=== PATIENT | female | born 1940 | race Caucasian/White ===

== ENCOUNTER 2018-04-18 05:11 | Inpatient (IN) | payer MEDICARE, MEDICAID ==
[~2018-04-18] VITALS: Ht 152.4 cm; Wt 92.1 kg
[2018-04-18 05:45] VITALS: BP 138/76
--- NOTE | 2018-04-18 05:45 | NUR ---
RN NOTES RECEIVED PT FROM DAY SURGERY A/OX4 IRAQI SPEAKING, UNDERSTAND LITTLE LIBERIAN, AT BEDSIDE, DENIES PAIN NO, SOB, PT. SIGNED ALL THE CONSENT, [id number], CONTINUE TO MONITOR
[2018-04-18] MEDS ORDERED: oxyCODONE HCL SR 10MG TAB.SR.12H PO ONE (06:00)
[2018-04-18] MEDS ORDERED: METOCLOPRAMIDE HCL 10 MG/2 ML VIAL IV ONE (06:00)
[2018-04-18] MEDS ORDERED: CELECOXIB 100 MG CAPSULE PO ONE (06:00)
[2018-04-18] MEDS ORDERED: ACETAMINOPHEN ES 500 MG TABLET PO ONE (06:00)
[2018-04-18] MEDS ORDERED: ACETAMINOPHEN ES 500 MG TABLET ONE (06:25)
[2018-04-18] MEDS ORDERED: ANESTHESIA TRAY IN PYXIS 1 EA TRAY MC ONE (06:30)
--- NOTE | 2018-04-18 06:35 | NUR ---
RN NOTES DR. SCHUSTER, ANESTHESIOLOGIST, CAME-UP AND CHECKED PT. LAB WORKS AND GAVE ME AN ORDER TO GIVE THE PRE-OP MEDS, ORDER NOTED AND CARRIED OUT
--- NOTE | 2018-04-18 06:50 | NUR ---
RN NOTES OR CAME AND PICKED-UP THE PT.ON STABLE CONDITION
[2018-04-18] MEDS ORDERED: HYDROMORPHONE INJ 2 MG/ML DISP.SYRIN ONE (06:57)
[2018-04-18] MEDS ORDERED: ROCURONIUM BROMIDE 50 MG/5 ML ONE ×2 (06:57→07:49)
[2018-04-18] MEDS ORDERED: KETOROLAC TROMETHAMINE INJ 30 MG/ML VIAL ONE ×2 (07:05→08:04)
[2018-04-18] MEDS ORDERED: DESFLURANE 240 ML BOTTLE IH ONE (07:05)
[2018-04-18] MEDS ORDERED: MORPHINE SULFATE INJ 4 MG/ML DISP.SYRIN ONE (07:06)
[2018-04-18] MEDS ORDERED: BUPIVACAINE MPF 0.5% W/EPI INJ 30 ML VIAL ONE (07:06)
--- NOTE | 2018-04-18 07:41 | NUR ---
MS RN OPENING NOTES RECEIVED REPORT ON PATIENT. PATIENT IS IN OPERATION ROOM. WILL CONTINUE TO MONITOR WHEN PATIENT RETURNS TO THE UNIT.
[2018-04-18] MEDS ORDERED: BACITRACIN 50000 UNITS/VIAL ONE (07:43)
[2018-04-18] MEDS ORDERED: ASPIRIN 600 MG/SUPP.RECT RC ONE (08:00)
[2018-04-18] MEDS ORDERED: TRANEXAMIC ACID 1,500 MG in SODIUM CHLORIDE IRRIG SOLUTION 85 ML IR ONE (08:00)
[2018-04-18] MEDS ORDERED: oxyCODONE IR immediate release 5 MG ONE (08:08)
[2018-04-18] MEDS ORDERED: HYDROMORPHONE 1 MG/1 ML DISP.SYRIN ONE (10:54)
[2018-04-18] MEDS ORDERED: HYDR-3976 PO (11:38)
[2018-04-18] MEDS ORDERED: METO-357 PO (11:38)
[2018-04-18] MEDS ORDERED: VALS1TAB4 PO (11:38)
[2018-04-18] MEDS ORDERED: OMEP20CA10 PO (11:38)
[2018-04-18] MEDS ORDERED: LEVO125T8 PO (11:38)
[2018-04-18] MEDS ORDERED: MELO-105 PO (11:38)
[2018-04-18] MEDS ORDERED: ASPI-1153 PO (11:38)
[2018-04-18] MEDS ORDERED: SITA1TAB2 PO (11:38)
[2018-04-18] MEDS ORDERED: ALLO100T PO (11:38)
[2018-04-18] MEDS ORDERED: ATOR10TA PO (11:38)
[2018-04-18] MEDS: ACETAMINOPHEN ES 500 MG TABLET PO SCH ×3 (12:00→23:14)
[2018-04-18] MEDS: ONDANSETRON HCL/PF 4 MG/2 ML VIAL IVP SCH ×3 (12:00→23:13)
[2018-04-18] MEDS: KETOROLAC TROMETHAMINE INJ 30 MG/ML VIAL IV SCH ×3 (12:00→23:14)
[2018-04-18] MEDS ORDERED: DULCOLAX 10 MG/SUPP.RECT RC PRN (12:30)
[2018-04-18] MEDS ORDERED: COLACE 100 MG CAPSULE PO PRN (12:30)
[2018-04-18] MEDS ORDERED: MAGNESIUM HYDROXIDE 30 ML UDC PO PRN (13:00)
[2018-04-18] MEDS ORDERED: HYDROMORPHONE 1 MG/1 ML DISP.SYRIN IV PRN (13:00)
[2018-04-18] MEDS: IV 1/2NS 1000 ML 1,000 ML IV PRN (13:11)
[2018-04-18] MEDS: ANCEF 1 G in IV D5W 50 ML IV SCH ×2 (14:26→22:01)
[2018-04-18] MEDS ORDERED: DEXTROSE 50%-WATER 50 ML DISP.SYRIN IV PRN (15:00)
[2018-04-18 16:10] VITALS: BP 96/61
[2018-04-18] MEDS: ALLOPURINOL 100 MG TABLET PO SCH (16:32)
[2018-04-18] MEDS: BLOOD SUGAR DIAGNOSTIC 1 EACH STRIP IN SCH ×2 (16:35→22:12)
[2018-04-18] MEDS: CELECOXIB 100 MG CAPSULE PO SCH (16:39)
[2018-04-18] MEDS: ATORVASTATIN 10 MG TABLET PO SCH (17:18)
[2018-04-18 17:33] LABS: HEMATOCRIT 28 % (33-45); HEMOGLOBIN 8.7 g/dL (11.5-14.8); LYMPHOCYTES # (AUTO) 0.6 /CMM (0.8-4.8); LYMPHOCYTES % (AUTO) 3.6 % (20.0-44.0); MEAN CORPUSCULAR HGB CONC 32 g/dl (31.0-36.0); MEAN CORPUSCULAR VOLUME 96 fL (82-100); MONOCYTES # (AUTO) 0.7 /CMM (0.1-1.30); MONOCYTES % (AUTO) 3.7 % (2.0-12.0); NEUTROPHILS # (AUTO) 16.5 /CMM (1.8-8.9); NEUTROPHILS % (AUTO) 92.7 % (43.0-81.0); PLATELET COUNT (AUTO) 224 /CMM (150-450); RDW COEFFICIENT OF VARIATION 14.5 (11.5-15.0); RED BLOOD CELL COUNT(AUTO) 2.87 MIL/uL (4.0-5.2); WHITE BLOOD COUNT (AUTO) 17.8 K/uL (4.3-11.0)
[2018-04-18 17:49] LABS: CALCIUM, SERUM 8.2 mg/dL (8.5-10.1); CARBON DIOXIDE 22 mmol/L (21-32); CHLORIDE 105 mmol/L (98-107); CREATININE 1.3 mg/dL (0.6-1.3); GLUCOSE 174 mg/dL (74-106); MAGNESIUM 1.3 mg/dL (1.8-2.4); PHOSPHORUS 4.7 mg/dL (2.5-4.9); POTASSIUM 4.3 mmol/L (3.5-5.1); SODIUM SERUM 140 mmol/L (136-145); UREA NITROGEN, BLOOD 23 mg/dL (7-18)
[2018-04-18 18:01] LABS: CHOLESTEROL 100 mg/dL (<200); HDL CHOLESTEROL 44 mg/dL (40-60); LDL 49 mg/dL (0-99); THYROID STIMULATING HORMONE 1.052 uIU/mL (0.358-3.74); TRIGLYCERIDES 43 mg/dL (30-150)
--- NOTE | 2018-04-18 18:32 | NUR ---
MS RN CLOSING NOTES PATIENT IS IN STABLE CONDITION. IN NO APPARENT DISTRESS. BEDSIDE RAILS ARE UPX2. BED IS LOCKED AND LOWERED. CALL LIGHT IS WITHIN REACH. IV LINE IS INTACT AND PATENT. WILL ENDORSE CARE TO LIGHTING FIXTURE INSTALLER NURSE FOR TANNER.
--- NOTE | 2018-04-18 19:00 | NUR ---
MS RN OPENING NOTE Patient was seen lying in bed AAOx4, breathing comfortably on 2L O2 NC with no SOB, and currently no signs of acute distress. 1/2 NS at 75ml/hr is running through the right FA with no signs of leaking or infiltration. Eng cath is draining clear, yellow urine. Bed is low/locked, two side rails up, and call teague within reach. Patient reports no pain/discomfort at this time. Will continue to monitor.
[2018-04-18 20:00] VITALS: BP 81/51
[2018-04-18] MEDS ORDERED: IV NS 0.9% 250 ML IV ONE (20:30)
--- NOTE | 2018-04-18 20:40 | NUR ---
MS RN NOTE - Low BP, Bolus and labs Patient's BP was found to be 81/51; patient still AAOx3 with no change in mental status. Phone call was made to Dr. Garcia. Per MD orders, one bolus of NS 250ml was given, and lab draw for CBC has been entered electronically. Will reassess after bolus is complete.
[2018-04-18 21:25] LABS: HEMATOCRIT 26 % (33-45); HEMOGLOBIN 8.1 g/dL (11.5-14.8); LYMPHOCYTES # (AUTO) 0.8 /CMM (0.8-4.8); MEAN CORPUSCULAR HGB CONC 31 g/dl (31.0-36.0); MEAN CORPUSCULAR VOLUME 97 fL (82-100); MONOCYTES # (AUTO) 0.7 /CMM (0.1-1.30); MONOCYTES % (AUTO) 4.4 % (2.0-12.0); NEUTROPHILS # (AUTO) 14.8 /CMM (1.8-8.9); NEUTROPHILS % (AUTO) 90.6 % (43.0-81.0); PLATELET COUNT (AUTO) 191 /CMM (150-450); RDW COEFFICIENT OF VARIATION 14.3 (11.5-15.0); RED BLOOD CELL COUNT(AUTO) 2.69 MIL/uL (4.0-5.2); WHITE BLOOD COUNT (AUTO) 16.3 K/uL (4.3-11.0)
[2018-04-18 21:40] VITALS: BP 102/56
--- NOTE | 2018-04-18 21:40 | NUR ---
MS RN NOTE - Reassess BP Bolus of NS 250ml has completed. Upon reassessment, patient's BP is 102/56, pulse 76 bpm. Patient remains AAOx3. Patient is tolerating fluids well. Restarted continuous IVF of 1/2 NS at 75ml/hr.
[2018-04-18] MEDS: INSULIN REGULAR, HUMAN 100 UNIT/ML 3 ML VIAL SQ PRN (22:12)
[2018-04-18] MEDS: Magnesium 1GM/D5W 100ML PREMIX 100 ML IV SCH (23:36)
[2018-04-19] VITALS (8 sets, daily range): BP systolic 84–106; BP diastolic 43–54
[2018-04-19] MEDS: Magnesium 1GM/D5W 100ML PREMIX 100 ML IV SCH (00:36)
[2018-04-19] MEDS: KETOROLAC TROMETHAMINE INJ 30 MG/ML VIAL IV SCH ×3 (05:05→18:24)
[2018-04-19] MEDS: ACETAMINOPHEN ES 500 MG TABLET PO SCH ×3 (05:06→18:24)
[2018-04-19] MEDS: ONDANSETRON HCL/PF 4 MG/2 ML VIAL IVP SCH (05:06)
[2018-04-19 06:39] LABS: CALCIUM, SERUM 8.2 mg/dL (8.5-10.1); CARBON DIOXIDE 24 mmol/L (21-32); CHLORIDE 104 mmol/L (98-107); CREATININE 1.2 mg/dL (0.6-1.3); GLUCOSE 127 mg/dL (74-106); POTASSIUM 4.8 mmol/L (3.5-5.1); SODIUM SERUM 137 mmol/L (136-145); UREA NITROGEN, BLOOD 28 mg/dL (7-18)
[2018-04-19] MEDS: PANTOPRAZOLE 40 MG TABLET.DR PO SCH (06:39)
[2018-04-19] MEDS: LEVOTHYROXINE SODIUM 125 MCG TABLET PO SCH ×2 (06:39→06:58)
[2018-04-19 06:40] LABS: BASOPHILS % (AUTO) 0.2 % (0.0-2.0); HEMATOCRIT 22 % (33-45); HEMOGLOBIN 7.2 g/dL (11.5-14.8); LYMPHOCYTES # (AUTO) 1.5 /CMM (0.8-4.8); LYMPHOCYTES % (AUTO) 11.9 % (20.0-44.0); MEAN CORPUSCULAR HGB CONC 32 g/dl (31.0-36.0); MEAN CORPUSCULAR VOLUME 97 fL (82-100); MONOCYTES # (AUTO) 0.9 /CMM (0.1-1.30); MONOCYTES % (AUTO) 6.9 % (2.0-12.0); NEUTROPHILS # (AUTO) 10.4 /CMM (1.8-8.9); PLATELET COUNT (AUTO) 187 /CMM (150-450); RDW COEFFICIENT OF VARIATION 14.8 (11.5-15.0); RED BLOOD CELL COUNT(AUTO) 2.32 MIL/uL (4.0-5.2); WHITE BLOOD COUNT (AUTO) 12.8 K/uL (4.3-11.0)
[2018-04-19] MEDS: IV 1/2NS 1000 ML 1,000 ML IV PRN ×2 (06:40→15:31)
[2018-04-19] MEDS: BLOOD SUGAR DIAGNOSTIC 1 EACH STRIP IN SCH ×4 (06:57→22:09)
--- NOTE | 2018-04-19 06:58 | NUR ---
MS RN NOTE - Refused Synthroid, took own med Patient refused to take Synthroid. Upon further assessment with [place] food manager, I found out that the patient had her own medication of Synthroid in her purse, which she had taken at 06:00. Advised patient that she should not be administering her own medications while in the hospital and that meds will either need to be taken home or go to our pharmacy temporarily.
--- NOTE | 2018-04-19 07:00 | NUR ---
MS RN CLOSING NOTE Patient AAOx3 with no signs of acute distress. All patient needs attended to overnight. Patient care endorsed to day shift RN.
--- NOTE | 2018-04-19 07:15 | NUR ---
MS RN INITIAL NOTES Report received at bedside. Patient received in bed, intermittently sleeping, easily aroused. Rwandan speaking, Signals Analyst used. Denies any pain at the moment. Not in any type of distress. No SOB/labored breathing noted. Patient reported to have blood pressure on the lower side. Will continue to monitor and assess patient.
--- NOTE | 2018-04-19 08:27 | NUR ---
MS RN - NOTES Dr. Tejeda at bedside. Aware of low blood pressure with new order of 2 units of PRBCs.
[2018-04-19] MEDS: HYDROCHLOROTHIAZIDE 25 MG TABLET PO SCH (09:00)
[2018-04-19] MEDS: METOPROLOL SUCCINATE 50 MG TAB.SR.24H PO SCH (09:00)
[2018-04-19] MEDS: VALSARTAN 80 MG TABLET PO SCH (09:00)
[2018-04-19] MEDS: CELECOXIB 100 MG CAPSULE PO SCH ×2 (09:07→17:26)
[2018-04-19] MEDS: ASPIRIN EC 81 MG TABLET.DR PO SCH (09:07)
[2018-04-19] MEDS: ALLOPURINOL 100 MG TABLET PO SCH ×2 (09:07→17:26)
[2018-04-19] MEDS: MELOXICAM 7.5 MG TABLET PO SCH (09:18)
[2018-04-19] MEDS: ASPIRIN EC 325 MG TABLET.DR PO SCH (09:18)
--- NOTE | 2018-04-19 12:00 | NUR ---
MS RN - MANUAL ADMIN NOTES Tylenol 500mg unable to scan barcode. Will give the label/barcode to [employer].
[2018-04-19] MEDS: INSULIN REGULAR, HUMAN 100 UNIT/ML 3 ML VIAL SQ PRN (12:19)
[2018-04-19] MEDS ORDERED: SITA1TAB2 PO (17:25)
[2018-04-19] MEDS: ATORVASTATIN 10 MG TABLET PO SCH ×3 (17:26→22:00)
--- NOTE | 2018-04-19 18:25 | NUR ---
MS RN - MANUAL ADMIN NOTES Still unable to scan tylenol barcode. Informed pharmacy director.
--- NOTE | 2018-04-19 18:26 | NUR ---
MS RN CLOSING NOTES Patient remained in bed, awake, and verbally responsive. Complained of pain with help of scheduled pain mgmt. No SOB/labored breathing noted. Not in any type distress. Eng cath in place: clear and yellow output: 600cc total output. Pillow abductor in place. Patient has been refusing insulin: found out that she has bottles of medications in her purse including janumet for DM. Provided teaching that it is best to have take her medications home for safety. MD made aware. Afebrile. All due meds given and tolerated. All needs anticipated and met. Bed in locked and lowest position with bed alarm on and call light within reach. Will endorse to oncoming shift nurse. ANIMATION ARTIST: Janny
--- NOTE | 2018-04-19 19:20 | NUR ---
RN OPENING NOTES RECEIVED PT IN BED, AWAKE, ALERT AND ORIENTED X 3, VERBALLY RESPONSIVE, NO DISTRESS AT THIS TIME, NO SOB, BREATHING EVEN AND UNLABORED. ALL PATIENT'S NEEDS ATTENDED TO AT THIS TIME, IVF INFUSING WELL ORDERED AND VILLA CATHETER IN PLACE DRAINING WITH YELLOW URINE. PLACED CALL LIGHT WITHIN EASY REACH, BED IN LOW POSITION AND LOCKED IN PLACE.WILL CONTINUE TO MONITOR PT.
--- NOTE | 2018-04-19 20:41 | NUR ---
BLOOD TRANSFUSION STARTED, PT AFEBRILE, NO DISTRESS AT THIS TIME, NO S/S OF INTOLERANCE. WILL CONTINUE TO MONITOR PT.
--- NOTE | 2018-04-19 20:46 | NUR ---
RN NOTES ATORVASTATIN ADMINISTERED EARLIER THAN SCHEDULED TIME PER PATIENT REQUEST.
[2018-04-20] VITALS (10 sets, daily range): BP systolic 100–129; BP diastolic 56–70
[2018-04-20] MEDS: KETOROLAC TROMETHAMINE INJ 30 MG/ML VIAL IV SCH ×2 (00:10→06:00)
[2018-04-20] MEDS: ACETAMINOPHEN ES 500 MG TABLET PO SCH ×4 (00:10→17:40)
[2018-04-20] MEDS: IV 1/2NS 1000 ML 1,000 ML IV PRN (04:55)
--- NOTE | 2018-04-20 06:56 | NUR ---
RN CLOSING NOTES PATIENT IN BED, ASLEEP BUT EASILY AROUSABLE., ALERT AND ORIENTED X 3, VERBALLY REPOSONSIVE, NO SOB, BREATHING EVEN AND UNLABORED, IN NO ACUTE DISTRESS. CONTINUES TO RECEIVE IVF ORDERED. ALL PATIENT'S NEEDS ATTENDED TO THROUGHOUT THE SHIFT. WILL ENDORSE TO AM SHIFT NURSE FOR CONTINUITY OF CARE.
--- NOTE | 2018-04-20 07:30 | NUR ---
PT BLOOD GLUCOSE WAS NOTED TO BE 115, PER SLIDING SCALE NO INSULIN REQUIRED AT THIS TIME
--- NOTE | 2018-04-20 07:39 | NUR ---
MS RN OPENING NOTES PT IN BED AT LOWEST AND LOCKED POSITION WITH SIDE RAILS UP X2, A/O X 3-4 OMANI SPEAKING, BREATHING IS EVEN AND UNLABORED ON 2L VIA NC, PT RECENTLY HAD FC REMOVED THIS MORNING AND PT HAS BEEN ABLE TO URINATE ON THEIR OWN SINCE USING A BEDPAN, IV IS PATENT AND INTACT, SAFETY PRECAUTIONS IN PLACE, CALL LIGHT WITHIN REACH WILL CONTINUE TO MONITOR ACCORDINGLY
[2018-04-20 08:45] LABS: BASOPHILS % (AUTO) 0.1 % (0.0-2.0); EOSINOPHILS % (AUTO) 3.5 % (0.0-6.0); HEMATOCRIT 22 % (33-45); HEMOGLOBIN 7.1 g/dL (11.5-14.8); LYMPHOCYTES # (AUTO) 1.7 /CMM (0.8-4.8); LYMPHOCYTES % (AUTO) 16.4 % (20.0-44.0); MEAN CORPUSCULAR HGB CONC 32 g/dl (31.0-36.0); MEAN CORPUSCULAR VOLUME 89 fL (82-100); MONOCYTES # (AUTO) 0.7 /CMM (0.1-1.30); MONOCYTES % (AUTO) 6.9 % (2.0-12.0); NEUTROPHILS # (AUTO) 7.4 /CMM (1.8-8.9); NEUTROPHILS % (AUTO) 73.1 % (43.0-81.0); PLATELET COUNT (AUTO) 151 /CMM (150-450); RDW COEFFICIENT OF VARIATION 22.3 (11.5-15.0); RED BLOOD CELL COUNT(AUTO) 2.46 MIL/uL (4.0-5.2); WHITE BLOOD COUNT (AUTO) 10.2 K/uL (4.3-11.0)
[2018-04-20] MEDS: BLOOD SUGAR DIAGNOSTIC 1 EACH STRIP IN SCH ×4 (08:51→22:16)
[2018-04-20] MEDS: PANTOPRAZOLE 40 MG TABLET.DR PO SCH (08:58)
[2018-04-20] MEDS: ASPIRIN EC 325 MG TABLET.DR PO SCH (08:58)
[2018-04-20] MEDS: LINAGLIPTIN 5 MG TABLET PO SCH (08:58)
[2018-04-20] MEDS: ALLOPURINOL 100 MG TABLET PO SCH ×2 (08:58→17:40)
[2018-04-20] MEDS: ASPIRIN EC 81 MG TABLET.DR PO SCH (08:58)
[2018-04-20] MEDS: LEVOTHYROXINE SODIUM 125 MCG TABLET PO SCH (08:58)
[2018-04-20] MEDS: MELOXICAM 7.5 MG TABLET PO SCH (08:58)
[2018-04-20] MEDS: VALSARTAN 80 MG TABLET PO SCH (09:00)
[2018-04-20] MEDS: METOPROLOL SUCCINATE 50 MG TAB.SR.24H PO SCH (09:00)
[2018-04-20 09:01] LABS: CALCIUM, SERUM 7.9 mg/dL (8.5-10.1); CARBON DIOXIDE 24 mmol/L (21-32); CHLORIDE 101 mmol/L (98-107); CREATININE 0.9 mg/dL (0.6-1.3); GLUCOSE 117 mg/dL (74-106); MAGNESIUM 1.8 mg/dL (1.8-2.4); SODIUM SERUM 133 mmol/L (136-145); UREA NITROGEN, BLOOD 22 mg/dL (7-18)
[2018-04-20] MEDS: CELECOXIB 100 MG CAPSULE PO SCH ×2 (09:14→17:40)
[2018-04-20] MEDS: HYDROCHLOROTHIAZIDE 25 MG TABLET PO SCH (09:19)
[2018-04-20] MEDS: METFORMIN 500 MG TABLET PO SCH ×2 (09:38→17:40)
--- NOTE | 2018-04-20 11:32 | NUR ---
PT BLOOD GLUCOSE WAS NOTED TO BE 144, ACCORDING TO SLIDING SCALE INSULIN 2 UNITS WAS TO BE GIVEN BUT PT REFUSED, HOWEVER PT IS ON 500 MG METFORMIN, WILL MONITOR ACCORDINGLY
[2018-04-20] MEDS ORDERED: MELO15TA13 PO (12:02)
--- NOTE | 2018-04-20 12:18 | NUR ---
CALLED DR. CHERY OFFICE REGARDING THE PATIENT'S HGB OF 7.1, NOBODY ANSWERED SO VOICEMAIL WAS LEFT, WILL CONTINUE TO MONITOR ACCORDINGLY AND AWAIT FURTHER ORDERS
--- NOTE | 2018-04-20 19:10 | NUR ---
MS RN OPENING NOTES Received patient A/O X 3, on semi-Pereira's position on bed with patent peripheral Iv line LAC G#20 with BT on going. Patient denies discomfort at this time, no apparent signs noted. Kept on bed comfortable, clean and dry. Call light within easy reach. Will continue to monitor accordingly.
--- NOTE | 2018-04-20 19:23 | NUR ---
MS RN CLOSING NOTES PT IN BED AT LOWEST AND LOCKED POSITION WITH SIDE RAILS UP X2, A/O X 3-4 JORDANIAN SPEAKING, BREATHING IS EVEN AND UNLABORED ON 2L VIA NC, PT RECENTLY HAD FC REMOVED THIS MORNING AND PT HAS BEEN ABLE TO URINATE ON THEIR OWN SINCE USING A BEDPAN, IV IS PATENT AND INTACT WITH BLOOD TRANSFUSING, SAFETY PRECAUTIONS IN PLACE, CALL LIGHT WITHIN REACH, ALL NEEDS ATTENDED TO, WILL ENDORSE TO DAY SHIFT FOR CONTINUITY OF CARE.
--- NOTE | 2018-04-20 20:10 | NUR ---
MS RN NOTES Current BT done. Patient denies discomfort at this time. Resume IV 1/2 NS @ 75ml/hr. Will continue to monitor accordingly.
[2018-04-20] MEDS: ATORVASTATIN 10 MG TABLET PO SCH (21:07)
[2018-04-20 22:38] LABS: HEMOGLOBIN 8.2 g/dL (11.5-14.8)
[2018-04-20] MEDS: INSULIN REGULAR, HUMAN 100 UNIT/ML 3 ML VIAL SQ PRN (23:04)
[2018-04-21] MEDS: ACETAMINOPHEN ES 500 MG TABLET PO SCH ×5 (01:10→23:22)
[2018-04-21] MEDS: AMBIEN 5 MG TABLET PO PRN ×2 (01:10→22:08)
--- NOTE | 2018-04-21 01:13 | NUR ---
MS RN NOTES Patient asked for her sleeping pill. Administered Ambien as ordered. Will continue to monitor.
[2018-04-21] MEDS: IV 1/2NS 1000 ML 1,000 ML IV PRN (04:58)
[2018-04-21] MEDS: BLOOD SUGAR DIAGNOSTIC 1 EACH STRIP IN SCH ×4 (06:34→22:17)
--- NOTE | 2018-04-21 06:46 | NUR ---
MS RN CLOSING NOTES Patient asleep on supine position. With patent peripheral IV line LAC G#20 with 1/2 NS infusing well @ 75ml/hr. No s/s of discomfort at this time. With O2 inhalation tolerated well @ 2LPM as ordered. no SOB/respoiratory distress noted. Afebrile throughout the shift. All needs attended. Kept clean dry and comfortable. Call light within easy reach. Endorsed to the next shift.
--- NOTE | 2018-04-21 07:07 | NUR ---
MS RN NOTES PATIENT IN BED , ALERT ORIENTED X 4, NO ACUTE DISTRESS NOTED. NO SOB NOTED. DENIED ANY PAIN AT THIS. IV ACCESS PATENT AND INTACT, NO REDNESS OR SWELLING NOTED. SAFETY MEASURES IN PLACE. CALL LIGHT WITHIN REACH, WILL CONTINUE TO MONITOR ACCORDINGLY.
[2018-04-21 07:20] LABS: EOSINOPHILS % (AUTO) 5.3 % (0.0-6.0); HEMATOCRIT 25 % (33-45); HEMOGLOBIN 7.9 g/dL (11.5-14.8); LYMPHOCYTES # (AUTO) 1.1 /CMM (0.8-4.8); LYMPHOCYTES % (AUTO) 12.8 % (20.0-44.0); MEAN CORPUSCULAR HGB CONC 32 g/dl (31.0-36.0); MEAN CORPUSCULAR VOLUME 87 fL (82-100); MONOCYTES # (AUTO) 0.7 /CMM (0.1-1.30); MONOCYTES % (AUTO) 8.4 % (2.0-12.0); NEUTROPHILS # (AUTO) 6.3 /CMM (1.8-8.9); NEUTROPHILS % (AUTO) 73.5 % (43.0-81.0); PLATELET COUNT (AUTO) 167 /CMM (150-450); RDW COEFFICIENT OF VARIATION 22.2 (11.5-15.0); RED BLOOD CELL COUNT(AUTO) 2.81 MIL/uL (4.0-5.2); WHITE BLOOD COUNT (AUTO) 8.6 K/uL (4.3-11.0)
[2018-04-21 07:34] LABS: CALCIUM, SERUM 8.3 mg/dL (8.5-10.1); CARBON DIOXIDE 26 mmol/L (21-32); CHLORIDE 104 mmol/L (98-107); CREATININE 0.7 mg/dL (0.6-1.3); GLUCOSE 110 mg/dL (74-106); POTASSIUM 4.2 mmol/L (3.5-5.1); SODIUM SERUM 137 mmol/L (136-145); UREA NITROGEN, BLOOD 12 mg/dL (7-18)
[2018-04-21 08:00] VITALS: BP 126/66
[2018-04-21] MEDS: ALLOPURINOL 100 MG TABLET PO SCH ×2 (08:13→17:54)
[2018-04-21] MEDS: ASPIRIN EC 325 MG TABLET.DR PO SCH (08:13)
[2018-04-21] MEDS: LEVOTHYROXINE SODIUM 125 MCG TABLET PO SCH (08:14)
[2018-04-21] MEDS: METFORMIN 500 MG TABLET PO SCH ×2 (08:14→17:54)
[2018-04-21] MEDS: CELECOXIB 100 MG CAPSULE PO SCH ×2 (08:14→17:54)
[2018-04-21] MEDS: ASPIRIN EC 81 MG TABLET.DR PO SCH (08:14)
[2018-04-21] MEDS: LINAGLIPTIN 5 MG TABLET PO SCH (08:14)
[2018-04-21] MEDS: VALSARTAN 80 MG TABLET PO SCH (08:15)
[2018-04-21] MEDS: HYDROCHLOROTHIAZIDE 25 MG TABLET PO SCH (08:15)
[2018-04-21] MEDS: PANTOPRAZOLE 40 MG TABLET.DR PO SCH (08:15)
[2018-04-21] MEDS: METOPROLOL SUCCINATE 50 MG TAB.SR.24H PO SCH (08:15)
[2018-04-21] MEDS: MELOXICAM 7.5 MG TABLET PO SCH (08:17)
[2018-04-21 16:00] VITALS: BP 121/61
--- NOTE | 2018-04-21 19:00 | NUR ---
MS RN NOTES PATIENT IN BED , ALERT ORIENTED X 4, NO ACUTE DISTRESS NOTED. NO SOB NOTED. DENIED ANY PAIN AT THIS. IV ACCESS PATENT AND INTACT, NO REDNESS OR SWELLING NOTED.DUE MEDICATIONS GIVEN, NO ASE NOTED. NEEDS ATTENDED AND ANTICIPATED. KEPT CLEAN DRY AND COMFORTABLE SAFETY MEASURES IN PLACE. CALL LIGHT WITHIN REACH. ENDORSED TO NIGHT NURSE FOR CONTINUITY OF CARE.
--- NOTE | 2018-04-21 19:20 | NUR ---
MS RN NOTES RECEIVED PT IN BED, ALERT AND ORIENTED X 3, IN NO ACUTE DISTRESS, DENIES PAIN AT THIS TIME, NO SOB NOTED, BREATHING EVEN AND UNLABORED AND TOLERATING ROOM AIR. ENCOURAGED USE OF INCENTIVE SPIROMETER. ALL PATIENT'S NEEDS ATTENDED TO, PLACED CALL LIGHT WITHIN EASY REACH, BED IN LOW POSITION AND LOCKED IN PLACE. WILL CONTINUE TO MONITOR THIS PT.
[2018-04-21 20:00] VITALS: BP 113/64
[2018-04-21] MEDS: ATORVASTATIN 10 MG TABLET PO SCH (22:04)
[2018-04-22] MEDS: IV 1/2NS 1000 ML 1,000 ML IV PRN (04:46)
[2018-04-22] MEDS: ACETAMINOPHEN ES 500 MG TABLET PO SCH ×3 (05:44→18:34)
[2018-04-22 06:30] LABS: BASOPHILS % (AUTO) 0.1 % (0.0-2.0); EOSINOPHILS % (AUTO) 5.4 % (0.0-6.0); HEMATOCRIT 26 % (33-45); HEMOGLOBIN 8.5 g/dL (11.5-14.8); LYMPHOCYTES # (AUTO) 2.3 /CMM (0.8-4.8); LYMPHOCYTES % (AUTO) 24.6 % (20.0-44.0); MEAN CORPUSCULAR HGB CONC 32 g/dl (31.0-36.0); MEAN CORPUSCULAR VOLUME 88 fL (82-100); MONOCYTES # (AUTO) 0.8 /CMM (0.1-1.30); MONOCYTES % (AUTO) 8.6 % (2.0-12.0); NEUTROPHILS # (AUTO) 5.8 /CMM (1.8-8.9); NEUTROPHILS % (AUTO) 61.3 % (43.0-81.0); PLATELET COUNT (AUTO) 221 /CMM (150-450); RED BLOOD CELL COUNT(AUTO) 2.96 MIL/uL (4.0-5.2); WHITE BLOOD COUNT (AUTO) 9.4 K/uL (4.3-11.0)
--- NOTE | 2018-04-22 06:39 | NUR ---
RN CLOSING NOTES PATIENT ASLEEP IN BED, EASILY AROUSABLE, RECEIVING IVF ORDERED AND IS INFUSING WELL. ALL PATIENT'S NEEDS ATTENDED TO THROUGHOUT THE SHIFT. KEPT PT SAFE AND DRY, CLEAN AND COMFORTABLE. WILL ENDORSE TO AM SHIFT NURSE FOR CONTINUITY OF CARE.
[2018-04-22] MEDS: PANTOPRAZOLE 40 MG TABLET.DR PO SCH (06:43)
[2018-04-22] MEDS: LEVOTHYROXINE SODIUM 125 MCG TABLET PO SCH (06:43)
[2018-04-22 06:52] LABS: CALCIUM, SERUM 8.4 mg/dL (8.5-10.1); CARBON DIOXIDE 28 mmol/L (21-32); CHLORIDE 102 mmol/L (98-107); CREATININE 0.7 mg/dL (0.6-1.3); GLUCOSE 109 mg/dL (74-106); MAGNESIUM 1.5 mg/dL (1.8-2.4); PHOSPHORUS 2.6 mg/dL (2.5-4.9); POTASSIUM 4.3 mmol/L (3.5-5.1); SODIUM SERUM 137 mmol/L (136-145); UREA NITROGEN, BLOOD 10 mg/dL (7-18)
[2018-04-22] MEDS: BLOOD SUGAR DIAGNOSTIC 1 EACH STRIP IN SCH ×3 (07:24→18:27)
[2018-04-22 08:00] VITALS: BP 132/71
[2018-04-22] MEDS: METOPROLOL SUCCINATE 50 MG TAB.SR.24H PO SCH (09:14)
[2018-04-22] MEDS: ASPIRIN EC 325 MG TABLET.DR PO SCH (09:15)
[2018-04-22] MEDS: METFORMIN 500 MG TABLET PO SCH ×2 (09:15→18:36)
[2018-04-22] MEDS: ALLOPURINOL 100 MG TABLET PO SCH ×2 (09:15→18:36)
[2018-04-22] MEDS: CELECOXIB 100 MG CAPSULE PO SCH ×2 (09:15→18:36)
[2018-04-22] MEDS: HYDROCHLOROTHIAZIDE 25 MG TABLET PO SCH (09:16)
[2018-04-22] MEDS: MELOXICAM 7.5 MG TABLET PO SCH (09:19)
[2018-04-22] MEDS: Magnesium 1GM/D5W 100ML PREMIX 100 ML IV SCH ×2 (12:00→13:19)
[2018-04-22] MEDS: LINAGLIPTIN 5 MG TABLET PO SCH (12:45)
[2018-04-22] MEDS ORDERED: ATOR10TA PO (12:47)
[2018-04-22] MEDS ORDERED: HYDR25TA4 PO (12:47)
[2018-04-22] MEDS ORDERED: ASPI-869 PO (12:47)
[2018-04-22] MEDS ORDERED: CELE100C PO (12:47)
[2018-04-22 16:00] VITALS: BP 130/74
--- NOTE | 2018-04-22 18:00 | NUR ---
MEDICATED THROUGHOUT THE DAY WITH ROUTINE TYLENOL EXTRA STRENGTH,ADDITIONALLY GIVEN ONE DOSE OF DILAUDID IV WHEN GETTING UP WITH PHYSICAL TX.TOLERATED WELL,SPOUSE AT BEDSIDE MOST OF DAY.LT. HIP DRESSING DRY AND INTACT.PLANNING FOR KEREN. DISCHARGE TO [facility].MG IV REPLACEMENT DONE.
[2018-04-22] MEDS: VALSARTAN 80 MG TABLET PO SCH (18:36)
--- NOTE | 2018-04-22 19:20 | NUR ---
RN MS OPENING NOTES RECEIVED PATIENT IN BED AWAKE ALERT AND ORIENTED X4 , ABLE TO MAKE NEEDS KNOWN , CZECH AND LIBERIAN SPEAKING, RESPIRATIONS EVEN AND UNLABORED WITH EQUAL RISE AND FALL OF CHEST.DENIES ANY PAIN OR DISCOMFORT AT THIS TIME. PATIENT IS AWARE OF DISCHARGE AND PAPERWORK UNDERSTANDS DISCHARGE AND PRESCRIPTIONS AND AWARE AND UNDERSTANDS TO MAKE APPOINTMENT WITH SURGEON IN 2 WEEKS PATIENT PROVIDED WITH NUMBER AND ALL EXIT CARE AND UNDERSTANDS NEW PRESCRIPTIONS RECOMMENDED. PATIENT STATES " YES I UNDERSTAND." PATIENT SIGNED DISCHARGE PAPERWORK AD BELONGINGS LIST. ALL BELONGINGS WITH PATIENT PER PATIENT DID NOT COME WITH WHEEL CHAIR. WILL WAIT FOR TRANSPORTATION TO ARRIVE. PERINEAL CARE PROVIDED ,IS DRY AND CLEAN. ABDUCTOR IN PLACE, DRESSING DRY AND INTACT TO LEFT HIP AREA NOT SOILED.
[2018-04-22 20:00] VITALS: BP 129/72
--- NOTE | 2018-04-22 20:25 | NUR ---
[facility] DELGADO NOTES [facility] HERE FOR TRANSPORATION VITAL SIGNS ARE STABLE PATIENT SAFELY TRANSFERRED TO [facility]. REPORT GIVEN TO EMT BELONGINGS AND DISCHARGE PAPERWORK WITH PATIENT. PATIENT LEFT IN STABLE CONDITION ALSO MADE AWARE HE IS ALLOWED TO RIDE WITH THEM. Addendum: 04/22/18 at 2248 by SENDY CAMERON RN ID BAND ND IV SITE REMOVED NO BLEEDING GAUZE APPLIED
== END 2018-04-22 20:30 | DRG 470 ==
LOC: DS 05:11 → MED 05:29
PROVIDERS: ADMIT Orthopaedic Surgery; ATTEND Orthopaedic Surgery
PROC: 30233N1 Transfusion of Nonautologous Red Blood Cells into Peripheral Vein, Percutaneous Approach (ICD-10-PCS; 2018-04-18)
PROC: 0SRB0JZ Replacement of Left Hip Joint with Synthetic Substitute, Open Approach (ICD-10-PCS; principal; 2018-04-18 07:00)
DX: M16.12 Unilateral primary osteoarthritis, left hip (principal); E03.9 Hypothyroidism, unspecified; E11.9 Type 2 diabetes mellitus without complications; E83.42 Hypomagnesemia; K21.9 Gastro-esophageal reflux disease without esophagitis; E66.01 Morbid (severe) obesity due to excess calories; Z68.39 Body mass index [BMI] 39.0-39.9, adult; D72.829 Elevated white blood cell count, unspecified; I10 Essential (primary) hypertension; E11.65 Type 2 diabetes mellitus with hyperglycemia; D50.9 Iron deficiency anemia, unspecified
CPT/HCPCS: 36415; 72170-TC; 80048-TC; 80061-TC; 82962-TC; 83735-TC; 84100-TC; 84443-TC; 85025-TC; 85027-TC; 86850-TC; 86921-TC; 87081-TC; 88305-TC; 88311-TC; 97110-TC; 97116-TC; 97530-TC; A4217; A4606; A6209; A6402; G0378; J0690; J1100; J1170; J1815; J1885; J2270; J2405; J2704; J2710; J2765; J3475; J3490; J7030; J7050; J7060; P9016-BL; Z7610